=== PATIENT | female | born 1985 | race Caucasian/White ===

== ENCOUNTER 2017-10-04 10:56 | Outpatient (RCR) | payer OTHER | END 2017-10-06 08:33 | disposition home or self-care (01) | LOC: WSOH 10:56 | DX: S62.661A Nondisplaced fracture of distal phalanx of left index finger, initial encounter for closed fracture (principal); W23.0XXA Caught, crushed, jammed, or pinched between moving objects, initial encounter; Y99.0 Civilian activity done for income or pay ==

== ENCOUNTER 2021-10-31 09:55 | Day surgery (SDC) | payer BC ==
[~2021-10-31] VITALS: Ht 180.3 cm; Wt 81.6 kg
[2021-10-31] MEDS ORDERED: ALLEGRA ALLERG180 MG PO (10:21)
[2021-10-31] MEDS ORDERED: FLONASEALLERGY NS (10:21)
[2021-10-31] MEDS ORDERED: PRENATAL TABLET PO (10:22)
[2021-10-31] MEDS ORDERED: MASON NATURAL2000 IU PO (10:22)
[2021-10-31] MEDS ORDERED: PROBIOTIC PO (10:23)
[2021-10-31 10:43] VITALS: BP 124/74; PULSE 50; TEMP 98.2
--- NOTE | 2021-10-31 12:30 | NUR ---
PT was taken back to the OR
[2021-10-31] MEDS ORDERED: NORCO 325 MG-51 TAB PO (13:42)
[2021-10-31 14:20] VITALS: BP 129/65; PULSE 47; TEMP 97.7
[2021-10-31 14:35] VITALS: BP 132/69; PULSE 43; TEMP 97.8
--- NOTE | 2021-10-31 14:42 | NUR ---
PATIENT TOLERATING WATER AND CRACKERS. DENIES NAUSEA. VITALS STABLE. WILL MONITOR.
[2021-10-31 14:50] VITALS: BP 120/65; PULSE 40; TEMP 98.3
[2021-10-31 15:05] VITALS: BP 124/69; PULSE 46; TEMP 98
--- NOTE | 2021-10-31 15:12 | NUR ---
AMBULATING INDEPENDENTLY TO RESTROOM
--- NOTE | 2021-10-31 15:20 | NUR ---
PT changed into personal clothes independently. IV discontinued. DC instructions and eductional material reviewed with the PT and her visitor, both verbalized understanding and the PT signed the realted paperwork. Questions answered to PT satisfaction. PT then dismissed from [facility] [place] via wheelchair to the PT entrence and transferred into the care of [place], who is driving private car. PT has DC packet in hand and personal belongings.
== END 2021-10-31 15:35 | disposition home or self-care (01) ==
LOC: SDCO 09:55
DX: K40.90 Unilateral inguinal hernia, without obstruction or gangrene, not specified as recurrent (principal)
CPT/HCPCS: C1781; J0690; J1100; J1885; J2405; J2704; J3010; J7120

== ENCOUNTER → 2024-01-11 | Outpatient (CLI) | payer BC ==
[~2024-01-11] MED LIST: ALLEGRA ALLERG180 MG PO; FLONASEALLERGY NS; MASON NATURAL2000 IU PO; NORCO 325 MG-51 TAB PO; PRENATAL TABLET PO; PROBIOTIC PO
== END ==
LOC: MC.RAD 11:01
DX: Z12.31 Encounter for screening mammogram for malignant neoplasm of breast (principal); R92.8 Other abnormal and inconclusive findings on diagnostic imaging of breast

== ENCOUNTER → 2024-03-07 | Outpatient (CLI) | payer BC | LOC: MC.RAD 13:49 | DX: N63.21 Unspecified lump in the left breast, upper outer quadrant (principal) ==